=== PATIENT | male | born 2000 | race Hispanic/Latino ===

== ENCOUNTER 2024-07-30 13:00 | Emergency (ER) | payer OTHER ==
[~2024-07-30] VITALS: Ht 177.8 cm; Wt 122.2 kg
[2024-07-30 13:23] VITALS: BP 146/88
== END 2024-07-30 13:26 | disposition home or self-care (01) ==
LOC: ED 13:00
DX: Z02.89 Encounter for other administrative examinations (principal)
CPT/HCPCS: 99284